=== PATIENT | male | born 1945 | race African-American/Black ===

== ENCOUNTER 2018-11-29 19:27 | Emergency (ER) | payer MEDICARE, MEDICAID ==
[~2018-11-29] VITALS: Ht 177.8 cm; Wt 107.0 kg
[2018-11-29 19:47] VITALS: BP 149/86
== END 2018-11-29 20:40 | disposition home or self-care (01) ==
LOC: ER 19:27
DX: S61.411D Laceration without foreign body of right hand, subsequent encounter (principal); F12.10 Cannabis abuse, uncomplicated; X58.XXXD Exposure to other specified factors, subsequent encounter
CPT/HCPCS: 99281